=== PATIENT | female | born 1980 | race African-American/Black ===

== ENCOUNTER 2017-08-18 00:44 | Emergency (ER) | payer MEDICAID, OTHER ==
[~2017-08-18] VITALS: Ht 152.4 cm; Wt 77.0 kg
[2017-08-18] MEDS ORDERED: IBUPROFEN 600MG TABLET PO ONE (01:15)
[2017-08-18 02:39] VITALS: BP 142/82
== END 2017-08-18 03:05 | disposition home or self-care (01) ==
LOC: ER 00:44
DX: R07.89 Other chest pain (principal)
CPT/HCPCS: 71010; 93005; 99284

== ENCOUNTER 2019-08-18 14:31 | Emergency (ER) | payer MEDICAID, MEDICARE ==
[~2019-08-18] VITALS: Ht 152.4 cm; Wt 72.0 kg
[2019-08-18] MEDS ORDERED: SODIUM CHLORIDE 0.9% 1,000 ML IV ONE (15:22)
[2019-08-18] MEDS ORDERED: KETOROLAC 30MG/ML VIAL IV STA (15:22)
[2019-08-18 15:45] LABS: CHLORIDE 110 mEq/L (98-107)
[2019-08-18 15:47] LABS: HCG SCREEN NEGATIVE
[2019-08-18 15:56] LABS: BASOPHILS % 0.6 % (0.0-2.0); EOSINOPHILS % 1.8 % (0.0-5.0); HEMATOCRIT. 34.8 % (36.0-48.0); HEMOGLOBIN. 11.3 g/dL (12.0-16.0); LYMPHOCYTES % 30.5 % (20.0-50.0); MEAN CORPUSCULAR HEMOGLOBIN 24.5 pg (28.0-32.0); MEAN CORPUSCULAR VOLUME 75.4 fL (81.0-99.0); MEAN PLATELET VOLUME 8.8 fl (7.4-10.4); MONOCYTES % 9.4 % (2.0-8.0); NEUTROPHILS % 57.7 % (40.0-76.0); PLATELET 346 x1000/uL (130-400); RED BLOOD CELL COUNT 4.61 mill/uL (4.2-5.4); RED CELL DISTRIBUTION WIDTH 17.2 % (11.6-14.6)
[2019-08-18 17:06] LABS: *AMPHETAMINES SCREEN URINE NEGATIVE (NEGATIVE); *BARBITURATES SCREEN URINE NEGATIVE (NEGATIVE); *BENZODIAZEPINES SCREEN URINE NEGATIVE (NEGATIVE); *COCAINE SCREEN URINE NEGATIVE (NEGATIVE); METHADONE URINE SCREEN NEGATIVE (NEGATIVE); OPIATES URINE SCREEN NEGATIVE (NEGATIVE); PHENCYCLIDINE URINE SCREEN NEGATIVE (NEGATIVE)
[2019-08-18 17:07] LABS: CANNABINOID URINE SCREEN NEGATIVE (NEGATIVE)
[2019-08-18 18:56] VITALS: BP 132/80
== END 2019-08-18 19:03 | disposition home or self-care (01) ==
LOC: ER 14:31
DX: R07.89 Other chest pain (principal)
CPT/HCPCS: 36415; 71045; 80053; 80305; 83880; 84484; 84703; 85025; 93005; 96374; 99284; J1885; J7030

== ENCOUNTER 2020-12-23 12:45 | Emergency (ER) | payer MEDICAID, MEDICARE ==
[~2020-12-23] VITALS: Ht 152.4 cm; Wt 78.0 kg
[2020-12-23] MEDS ORDERED: ASPIRIN 81MG TABLET PO ONE (13:15)
[2020-12-23 13:47] LABS: BASOPHILS % 0.8 % (0.0-2.0); EOSINOPHILS % 1.5 % (0.0-5.0); HEMATOCRIT. 34.9 % (36.0-48.0); LYMPHOCYTES % 29.3 % (20.0-50.0); MEAN CORPUSCULAR HEMOGLOBIN 22.8 pg (28.0-32.0); MEAN CORPUSCULAR VOLUME 72.5 fL (81.0-99.0); MONOCYTES % 8.5 % (2.0-8.0); NEUTROPHILS % 59.9 % (40.0-76.0); PLATELET 423 x1000/uL (130-400); RED BLOOD CELL COUNT 4.82 mill/uL (4.2-5.4); RED CELL DISTRIBUTION WIDTH 17.9 % (11.6-14.6)
[2020-12-23 13:56] LABS: *AMPHETAMINES SCREEN URINE NEGATIVE (NEGATIVE); *BARBITURATES SCREEN URINE NEGATIVE (NEGATIVE); *BENZODIAZEPINES SCREEN URINE NEGATIVE (NEGATIVE); CHLORIDE 104 mEq/L (98-107)
[2020-12-23 13:57] LABS: *COCAINE SCREEN URINE NEGATIVE (NEGATIVE); CANNABINOID URINE SCREEN NEGATIVE (NEGATIVE); METHADONE URINE SCREEN NEGATIVE (NEGATIVE); OPIATES URINE SCREEN NEGATIVE (NEGATIVE); PHENCYCLIDINE URINE SCREEN NEGATIVE (NEGATIVE)
[2020-12-23 14:06] LABS: HCG SCREEN NEGATIVE
[2020-12-23] MEDS ORDERED: HYDROXYZINE 25MG TABLET PO NR (15:00)
[2020-12-23 16:51] VITALS: BP 121/79
== END 2020-12-23 16:56 | disposition home or self-care (01) ==
LOC: ER 13:29
DX: R07.9 Chest pain, unspecified (principal); R00.2 Palpitations; D64.9 Anemia, unspecified; Z87.442 Personal history of urinary calculi
CPT/HCPCS: 36415; 71045; 80053; 80305; 81025; 83880; 84484; 84703; 85025; 93005; 99285; Z7610

== ENCOUNTER 2021-03-05 22:39 | Emergency (ER) | payer MEDICAID, MEDICARE ==
[~2021-03-05] VITALS: Ht 152.4 cm; Wt 76.0 kg
[2021-03-05 23:43] LABS: BASOPHILS % 0.3 % (0.0-2.0); HEMATOCRIT. 33.2 % (36.0-48.0); HEMOGLOBIN. 10.5 g/dL (12.0-16.0); LYMPHOCYTES % 17.3 % (20.0-50.0); MEAN CORPUSCULAR HEMOGLOBIN 21.9 pg (28.0-32.0); MEAN CORPUSCULAR VOLUME 69.2 fL (81.0-99.0); MEAN PLATELET VOLUME 8.1 fl (7.4-10.4); MONOCYTES % 7.3 % (2.0-8.0); NEUTROPHILS % 74.1 % (40.0-76.0); PLATELET 432 x1000/uL (130-400); RED BLOOD CELL COUNT 4.79 mill/uL (4.2-5.4); RED CELL DISTRIBUTION WIDTH 20.1 % (11.6-14.6)
[2021-03-05 23:44] LABS: CHLORIDE 107 mEq/L (98-107)
[2021-03-05 23:48] LABS: ETHANOL BLOOD < 10 mg/dL
[2021-03-06 01:24] LABS: *AMPHETAMINES SCREEN URINE NEGATIVE (NEGATIVE); *BARBITURATES SCREEN URINE NEGATIVE (NEGATIVE)
[2021-03-06 01:25] LABS: *BENZODIAZEPINES SCREEN URINE NEGATIVE (NEGATIVE); *COCAINE SCREEN URINE NEGATIVE (NEGATIVE); CANNABINOID URINE SCREEN NEGATIVE (NEGATIVE); METHADONE URINE SCREEN NEGATIVE (NEGATIVE); OPIATES URINE SCREEN NEGATIVE (NEGATIVE); PHENCYCLIDINE URINE SCREEN NEGATIVE (NEGATIVE)
[2021-03-06 01:53] LABS: PLATELET ESTIMATE INCREASED
[2021-03-06 02:05] VITALS: BP 112/72
[2021-03-06 02:21] LABS: CLARITY URINE CLEAR (CLEAR); COLOR URINE YELLOW (YELLOW); KETONES URINE NEGATIVE (NEGATIVE); LEUKOCYTE ESTERASE URINE NEGATIVE (NEGATIVE); NITRITE URINE NEGATIVE (NEGATIVE); OCCULT BLOOD URINE NEGATIVE (NEGATIVE); PROTEIN URINE NEGATIVE (NEGATIVE); SPECIFIC GRAVITY URINE 1.026 (1.005-1.030); UROBILINOGEN URINE 0.2 E.U./dL (0.2-1.0)
== END 2021-03-06 02:05 | disposition home or self-care (01) ==
LOC: ER 22:39
DX: R55 Syncope and collapse (principal); R51.9 Headache, unspecified
CPT/HCPCS: 36415; 80053; 80305; 80320; 81003; 82962; 84484; 85025; 93005; 99285; G0480